=== PATIENT | male | born 1985 | race African-American/Black ===

== ENCOUNTER 2017-07-30 21:18 | Emergency (ER) | payer SELFPAY ==
[~2017-07-30] VITALS: Ht 188 cm; Wt 127.0 kg
[2017-07-30 21:20] VITALS: BP 155/80
--- NOTE | 2017-07-30 21:34 | PHYS DOC ---
Past Medical History Past Medical History: No Pertinent History Past Surgical History: No Surgical History Smoking: Cigarettes Drug Use: Cocaine Adult General HPI HPI Patient is a 32 year old male who presents with cocaine use. He states he smokes and snorts cocaine and has been using for 3 days straight. Last use was just prior to arrival. He states however he did been affected like this before he thinks he may of gotten "something else" in his drugs. He denies any headache , no chest pain. Review of Systems Review of Systems Constitutional: Denies fever or chills Eyes: Denies change in visual acuity, redness, or eye pain HENT: Denies nasal congestion or sore throat Respiratory: POS cough or shortness of breath Cardiovascular: No chest pain GI: Denies abdominal pain, nausea, vomiting, bloody stools or diarrhea : Denies dysuria or hematuria Musculoskeletal: Denies back pain or joint pain Integument: Denies rash or skin lesions Neurologic: Denies headache, focal weakness or sensory changes Current Medications Current Medications Current Medications Medications (Trade) Dose Ordered Sig/Hi Start Time Stop Time Status Last Admin Dose Admin Lorazepam (Ativan) 2 mg 1X ONCE 07/30/17 22:00 07/30/17 22:01 DC Sodium Chloride 1,000 ml @ 1,000 mls/hr Q1H 07/30/17 22:00 07/30/17 22:19 DC Allergies Allergies Allergies Coded Allergies Type Severity Reaction Last Updated Verified No Known Drug Allergies 07/30/17 No Physical Exam Physical Exam Constitutional: Well developed, well nourished, no acute distress, non-toxic appearance. Diaphoretic HENT: Normocephalic, atraumatic, bilateral external ears normal, oropharynx moist, no oral exudates, nose normal. Eyes: PERRLA, EOMI, conjunctiva normal, no discharge. Neck: Normal range of motion, no tenderness, supple, no stridor. Cardiovascular:Heart rate regular rhythm, no murmur, tachycardic Lungs & Thorax: Bilateral breath sounds clear to auscultation, no rales, rhonchi or wheezing. Abdomen: Bowel sounds normal, soft, no tenderness, no masses, no pulsatile masses. Skin: Warm, dry, no erythema, no rash. Back: No tenderness, no CVA tenderness. Extremities: No tenderness, no cyanosis, no clubbing, ROM intact, no edema. Neurologic: Alert and oriented X 3, normal motor function, normal sensory function, no focal deficits noted. Current Patient Data Vital Signs Vital Signs Date Time Temp Pulse Resp B/P (MAP) Pulse Ox O2 Delivery O2 Flow Rate FiO2 07/30/17 21:20 98.7 116 35 155/80 (105) 98 Room Air 98.7 Lab Values Laboratory Tests Test 07/30/17 21:25 White Blood Count 9.2 x10^3/uL (4.0-11.0) Red Blood Count 5.37 x10^6/uL (4.30-5.70) Hemoglobin 16.6 g/dL (13.0-17.5) Hematocrit 47.8 % (39.0-53.0) Mean Corpuscular Volume 89 fL (79-100) Mean Corpuscular Hemoglobin 31 pg (25-35) Mean Corpuscular Hemoglobin Concent 35 g/dL (31-37) Red Cell Distribution Width 12.6 % (11.5-14.5) Platelet Count 280 x10^3/uL (140-400) Neutrophils (%) (Auto) 67 % (31-73) Lymphocytes (%) (Auto) 21 % (24-48) L Monocytes (%) (Auto) 11 % (0-9) H Eosinophils (%) (Auto) 1 % (0-3) Basophils (%) (Auto) 0 % (0-3) Neutrophils # (Auto) 6.2 x10^3uL (1.8-7.7) Lymphocytes # (Auto) 1.9 x10^3/uL (1.0-4.8) Monocytes # (Auto) 1.0 x10^3/uL (0.0-1.1) Eosinophils # (Auto) 0.1 x10^3/uL (0.0-0.7) Basophils # (Auto) 0.0 x10^3/uL (0.0-0.2) Prothrombin Time 13.8 SEC (11.7-14.0) Prothrombin Time INR 1.1 (0.8-1.1) Sodium Level 142 mmol/L (136-145) Potassium Level 3.5 mmol/L (3.5-5.1) Chloride Level 105 mmol/L (98-107) Carbon Dioxide Level 28 mmol/L (21-32) Anion Gap 9 (6-14) Blood Urea Nitrogen 11 mg/dL (8-26) Creatinine 1.6 mg/dL (0.7-1.3) H Estimated GFR (Cockcroft-Gault) 50.0 Glucose Level 115 mg/dL (70-99) H Calcium Level 9.5 mg/dL (8.5-10.1) Total Bilirubin 1.2 mg/dL (0.2-1.0) H Direct Bilirubin 0.2 mg/dL (0.0-0.2) Aspartate Amino Transferase (AST) 35 U/L (15-37) Alanine Aminotransferase (ALT) 45 U/L (16-63) Alkaline Phosphatase 63 U/L (46-116) Creatine Kinase 1108 U/L (39-308) H Creatine Kinase MB (Mass) 2.3 ng/mL (0.0-3.6) Creatine Kinase MB Relative Index 0.2 % (0-4) Troponin I Quantitative < 0.017 ng/mL (0.000-0.055) IA-Ihj-U-Type Natriuretic Peptide 9 pg/mL (0-124) Total Protein 8.1 g/dL (6.4-8.2) Albumin 4.6 g/dL (3.4-5.0) Lipase 95 U/L (73-393) Laboratory Tests 07/30/17 21:25 Laboratory Tests 07/30/17 21:25 EKG EKG EKG interpreted by myself at 212 5 PM shows sinus tachycardia, rate of 112, nonspecific ST changes, no ST elevation. Radiology/Procedures Radiology/Procedures Chest x-ray interpreted by myself at 2200 p.m. as no pneumothorax, no pneumomediastinum, no infiltrate, Course & Med Decision Making Course & Med Decision Making Met patient upon arrival by EMS to room 23. He is very agitated but alert and answering all questions appropriately. He admits to using the cocaine however he is concerned because it never felt like this before that perhaps he got something else. I told him we can certainly check a drug screen however many of his other illicit substances that are used to cut into drugs do not always show up on her drug screens. Will start IV with some fluids and IV Ativan. EKG shows no STEMI at this time. He does deny any chest pain. He became mad when we asked him for the urine. "What are you going to do call the police?" We told him we do not have police here but he replied "yes, you do, I've been here before and you did." AT 2200 PM: He removed his IV and he walked out. aT 2230 PM lab returned and I reviewed (although patient had already eloped). Dragon Disclaimer Dragon Disclaimer This electronic medical record was generated, in whole or in part, using a voice recognition dictation system. Departure Departure Impression: Primary Impression: Cocaine abuse Disposition: 07 AGAINST MEDICAL ADVICE MANUEL LOPEZ MD Jul 30, 2017 21:33
[2017-07-30 21:42] LABS: BASO % 0 % (0-3); EOS % 1 % (0-3); HEMATOCRIT 47.8 % (39.0-53.0); HEMOGLOBIN 16.6 g/dL (13.0-17.5); LYMPH # 1.9 x10^3/uL (1.0-4.8); LYMPH % 21 % (24-48); MEAN CORPUSCULAR HEMOGLOBIN 31 pg (25-35); MEAN CORPUSCULAR HGB CONC 35 g/dL (31-37); MEAN CORPUSCULAR VOLUME 89 fL (79-100); MONO % 11 % (0-9); NEUT % 67 % (31-73); PLATELET COUNT 280 x10^3/uL (140-400); RED BLOOD COUNT 5.37 x10^6/uL (4.30-5.70); RED CELL DISTRIBUTION WIDTH 12.6 % (11.5-14.5); WHITE BLOOD COUNT 9.2 x10^3/uL (4.0-11.0)
[2017-07-30 21:51] LABS: INR 1.1 (0.8-1.1); PROTHROMBIN TIME PATIENT 13.8 SEC (11.7-14.0)
[2017-07-30] MEDS: IV NORMAL SALINE 1000ML BAG 1,000 ML IV SCH ×2 (21:53→22:00)
[2017-07-30 22:03] LABS: CALCIUM 9.5 mg/dL (8.5-10.1); CREATININE 1.6 mg/dL (0.7-1.3); POTASSIUM 3.5 mmol/L (3.5-5.1)
[2017-07-30 22:08] LABS: ALBUMIN 4.6 g/dL (3.4-5.0); DIRECT BILIRUBIN 0.2 mg/dL (0.0-0.2); TOTAL BILIRUBIN 1.2 mg/dL (0.2-1.0); TOTAL PROTEIN 8.1 g/dL (6.4-8.2)
[2017-07-30 22:18] LABS: CKMB MASS 2.3 ng/mL (0.0-3.6)
--- NOTE | 2017-07-31 07:17 | EKG ---
[facility] [address] [place] [address] Test Date: 2017-07-30 Test Time: 21:25:16 Pat Name: JAMIE CASE Department: Room: Gender: M Tableau Developer: : 1985 Requested By: MANUEL LOPEZ Order Number: [id number] Reading MD: Tomas Gonzalez Measurements Intervals [place] Rate: 112 P: 31 MA: 148 QRS: 39 QRSD: 90 T: 3 QT: 322 QTc: 441 Interpretive Statements SINUS TACHYCARDIA Electronically Signed On 08-01-2017 13:15:41 CDT by Tomas Gonzalez
--- NOTE | 2017-07-31 08:09 | RAD ---
Chest radiograph 07/30/2017 11:31 PM Indication: Cocaine use, cough Comparison: None available. Technique: Single portable upright frontal view of the chest is provided. Findings: Cardiomediastinal silhouette is within normal limits. Low lung volumes. No pleural effusions, pulmonary vascular congestion or pneumothorax. The lungs are clear. Osseous structures are normal. Impression: No acute cardiopulmonary process.
== END 2017-07-30 22:05 | disposition left against medical advice (07) ==
LOC: ER 21:18
DX: F14.10 Cocaine abuse, uncomplicated (principal); F17.210 Nicotine dependence, cigarettes, uncomplicated
CPT/HCPCS: 71010; 80048; 80076; 82553; 83690; 83880; 84484; 85025; 85610; 93005; J2060; J7030; 99285-25

== ENCOUNTER 2017-07-30 23:11 | Emergency (ER) | payer SELFPAY ==
[~2017-07-30] VITALS: Ht 193 cm; Wt 127.0 kg
--- NOTE | 2017-07-30 23:21 | PHYS DOC ---
Past Medical History Past Medical History: No Pertinent History Past Surgical History: No Surgical History Alcohol Use: None Drug Use: Cocaine Adult General HPI HPI Patient is a 32 year old male who presents with left 5th digit pain. He was just seen here short while ago for cocaine use. He eloped and ran and apparently police had caught him some more off property. His complaining of left fifth digit pain. Presents with law enforcement in handcuffs. Review of Systems Review of Systems Constitutional: Denies fever or chills [] Eyes: Denies change in visual acuity, redness, or eye pain [] HENT: Denies nasal congestion or sore throat [] Respiratory: Denies cough or shortness of breath [] Cardiovascular: No additional information not addressed in HPI [] GI: Denies abdominal pain, nausea, vomiting, bloody stools or diarrhea [] : Denies dysuria or hematuria [] Musculoskeletal: Denies back pain or joint pain [] Integument: Denies rash or skin lesions [] Neurologic: Denies headache, focal weakness or sensory changes [] Endocrine: Denies polyuria or polydipsia [] Allergies Allergies Allergies Coded Allergies Type Severity Reaction Last Updated Verified No Known Drug Allergies 07/30/17 No Physical Exam Physical Exam Constitutional: Well developed, well nourished, no acute distress, non-toxic appearance. Covered in grass. HENT: Normocephalic, atraumatic, bilateral external ears normal, oropharynx moist, no oral exudates, nose normal. Eyes: PERRLA, EOMI, conjunctiva normal, no discharge. Neck: Normal range of motion, no tenderness, supple, no stridor. Cardiovascular:Heart rate regular rhythm, no murmur Lungs & Thorax: Bilateral breath sounds clear to auscultation Abdomen: Bowel sounds normal, soft, no tenderness, no masses, no pulsatile masses. Skin: Warm, dry, no erythema, no rash. Covered in grass. Back: No tenderness, no CVA tenderness. Left shoulder with abrasion. Full ROM; NVI distally. Left hand: no deformity noted. Pain on palpation of left 5th digit. Extremities: No tenderness, no cyanosis, no clubbing, ROM intact, no edema. Neurologic: Alert and oriented X 3, normal motor function, normal sensory function, no focal deficits noted. Radiology/Procedures Radiology/Procedures Left hand xray: Interpreted by myself at 20 3:30 PM. No fracture. Course & Med Decision Making Course & Med Decision Making Patient returns. His EKG, CXR and lab work were normal from his visit just an hour ago. Left hand with skin intact. Xray obtained and is negative. Discharged with Police. Dragon Disclaimer Dragon Disclaimer This electronic medical record was generated, in whole or in part, using a voice recognition dictation system. Departure Departure Impression: Primary Impression: Contusion, hand Additional Impression: Shock from electroshock gun (taser) Disposition: HOME, SELF-CARE (with law enforcement) Referrals: NO PCP (PCP) Patient Instructions: Hand Contusion Problem Qualifiers Primary Impression: Contusion, hand Encounter type: initial encounter Laterality: left Qualified Codes: S60.222A - Contusion of left hand, initial encounter Additional Impression: Shock from electroshock gun (taser) Encounter type: initial encounter Qualified Codes: T75.4XXA - Electrocution , initial encounter; W86.8XXA - Exposure to other electric current, initial encounter MANUEL LOPEZ MD Jul 30, 2017 23:21
[2017-07-30 23:27] VITALS: BP 172/55
--- NOTE | 2017-07-31 08:05 | RAD ---
Exam: Left hand radiograph 07/30/2017 at 2328 hours Indication: Fifth digit pain Comparison: None available Technique: 3 views of the left hand are provided. Findings: There is no acute fracture or dislocation. No joint space narrowing. No soft tissue swelling. No osseous erosion or soft tissue gas. Bone mineralization is within normal limits. Impression: No acute fracture or dislocation.
== END 2017-07-30 23:42 | disposition home or self-care (01) ==
LOC: ER 23:11
DX: S60.222A Contusion of left hand, initial encounter (principal); S40.212A Abrasion of left shoulder, initial encounter; T75.4XXA Electrocution, initial encounter; W86.8XXA Exposure to other electric current, initial encounter
CPT/HCPCS: 73130; 99284